=== PATIENT | female | born 1995 | race Caucasian/White ===

== ENCOUNTER 2023-12-27 21:32 | Outpatient (CLI) | payer BC, SELFPAY | END 2023-12-27 23:59 | LOC: LAB.DROPOF 21:32 | PROVIDERS: PCP Student in an Organized Health Care Education/Training Program; Visit Provider Student in an Organized Health Care Education/Training Program | DX: R05.9 Cough, unspecified (principal); R50.9 Fever, unspecified; J02.9 Acute pharyngitis, unspecified; R09.89 Other specified symptoms and signs involving the circulatory and respiratory systems; Z20.828 Contact with and (suspected) exposure to other viral communicable diseases | CPT/HCPCS: 87070 ==

== ENCOUNTER 2024-04-18 20:33 | Emergency (ER) | payer BC, SELFPAY ==
[2024-04-18 20:34] VITALS: BP 165/85; PULSE 90; RESP 20; TEMP 37.7; O2SAT 97; BMI 33.9
--- NOTE | 2024-04-18 20:41 | XR_ITS ---
PROCEDURE INFORMATION: Exam: XR Chest Exam date and time: 04/18/2024 8:52 PM Age: 28 years old Clinical indication: Shortness of breath; Additional info: SOA and productive cough, L posterior cp TECHNIQUE: Imaging protocol: Radiologic exam of the chest. Views: 2 views. COMPARISON: No relevant prior studies available. FINDINGS: Lungs: Patchy streaky airspace opacities in the left upper lobe compatible with developing pneumonia. Lungs otherwise clear. Pleural spaces: Unremarkable. No pleural effusion. No pneumothorax. Heart/Mediastinum: Unremarkable. No cardiomegaly. Bones/joints: Unremarkable. IMPRESSION: Left upper lobe pneumonia. Consider follow-up x-ray in 4-6 weeks to ensure resolution.
--- NOTE | 2024-04-18 20:49 | PC.NURSE ---
RT notified of VBG, states she will pick it up in the lab
--- NOTE | 2024-04-18 20:50 | ECG_ITS ---
APPROVED REPORT Exam: Resting ECG HR:79 bpm ECG Measurements Heart Rate 79 AXES SD 161 P 33 QRSd 85 QRS 13 QT 345 T 22 QTc 379 Conclusion SINUS RHYTHM Electronically signed by : AGNIESZKA SANDERS, 04/18/2024 22:00:49
[2024-04-18] MEDS: KETOROLAC 30MG/ML VIAL 15 MG IV (20:52)
[2024-04-18] MEDS: LACTATED RINGERS 1000ML 1,000 ML 999 ML IV (20:52)
[2024-04-18 21:00] VITALS: BP 136/73; PULSE 100; O2SAT 98
[2024-04-18 21:09] LABS: Lactate Venous 1.4 mmol/L (0.4-2.0); VBG Base Excess 0.6 mmol/L (-2.4-2.3); VBG HCO3 25.8 mmol/L (23-30); VBG PH 7.38 mmol/L (7.31-7.41); VBG PO2 37.8 mmol/L (28-40); VBG Total CO2 27.2 mmol/L (23-27)
[2024-04-18 21:10] LABS: Basophils # 0.1 K/mm3 (0-0.2); Basophils % 0.7 % (0.1-2.0); Eosinophils # 0.4 K/mm3 (0.0-0.4); Eosinophils % 3.7 % (0.1-12.0); Hematocrit 37.2 % (37.0-47.0); Hemoglobin 12.6 g/dL (12.2-16.2); Lymphocytes # 1.8 K/mm3 (0.7-4.5); Lymphocytes % 17.6 % (10-50); Mean Corpuscular HGB Conc 33.9 g/dL (31.8-35.4); Mean Corpuscular Hemoglobin 28.8 pg (27.0-31.2); Mean Corpuscular Volume 84.9 fl (81-99); Mean Platelet Volume 7.2 fl (7.4-10.4); Monocytes # 0.4 K/mm3 (0.1-1.0); Neutrophils # 7.4 K/mm3 (1.8-7.8); Platelet Count 364 K/mm3 (142-424); Red Blood Count 4.38 M/mm3 (4.20-5.40); Red Cell Distribution Width 13.6 % (11.5-17.5)
--- NOTE | 2024-04-18 21:24 | [facility].EDCP ---
Discharge Plan Disposition Patient Disposition: Home, Self-Care Prescriptions Prescriptions: New amoxicillin-pot clavulanate 875-125 mg tablet 1 tab PO BID 7 Days Qty: 14 0RF azithromycin 500 mg tablet 500 mg PO DAILY 2 Days Qty: 2 0RF Rx Instructions: start on day 2 of therapy No Action fluticasone propionate [Allergy Relief (fluticasone)] 50 mcg/actuation spray,suspension 1 spray intranasal DAILY Qty: 16 2RF Rx Instructions: administer into each nostril Referrals Follow up/Referrals: Arpita Bermudez PA [Primary Care Provider] - See instructions Activity Restrictions/Add. Instructions Additional Instructions/Restrictions: Azithromycin each day for the next 2 days. Augmentin twice daily for the full course. Call your family doctor to establish care for this visit to the emergency department and schedule follow-up within 48 hours to ensure improvement. If you have any worsening of your condition or any other concerning signs or symptoms, return to the emergency department or your primary care doctor for further evaluation. Clinical Impressions Clinical Impression: Left upper lobe pneumonia Discharge ED Provider: Mk Thomas [facility] General Chief Complaint: Shortness of Breath/Dyspnea Stated Complaint: diff breathing, cough Time Seen by Provider: 04/18/24 20:35 Mode of Arrival: Ambulatory Source of Information: Patient Limitations: No Limitations Description of Symptoms (Recalled from ER Triage Doc. by RN): Pt ambulatory to ED with c/o difficulty tsking a deep breath, and difficulty breathing while laying flat. pt reports she started having fevers 7/4 that lasted unitl yesterday. Pt also reports for the past 2 mornings she has had a productive cough with streaks of blood in mucous. History of Present Illness HPI narrative: Please note that above description of symptoms, in this electronic medical record under categorization of recalled from ER triage doctor by RN are reflective of an initial nursing assessment, however, is not reflective of my full history and physical exam that was personally taken and clarified. Consequentially, this preceding description of symptoms, which may include the patient's categorized chief complaint in the EMR, do not reflect my personal clinical impression, and the ultimate description of history of present illness and patient stated complaints should be deferred to this section of the note. Unless stated otherwise or congruent with this section of the note, additional signs, symptoms, or incongruence should be interpreted as inaccurate with my clinical impression. Related Data Previous Rx's Medication Instructions Recorded fluticasone propionate 50 1 spray intranasal DAILY #16 grams 12/27/23 mcg/actuation nasal spray,suspension (Allergy Relief (fluticasone)) amoxicillin 875 mg-potassium 1 tab PO BID 7 days #14 tabs 04/18/24 clavulanate 125 mg tablet azithromycin 500 mg tablet 500 mg PO DAILY 2 days #2 tabs 04/18/24 Allergies Allergy/AdvReac Type Severity Reaction Status Date / Time No Known Allergies Allergy Verified 12/27/23 14:10 [facility] Disclaimer: The information contained in this section may have been updated after the patient was seen, as this information can be updated by other users. Medical History (Updated 04/18/24 @ 22:25 by Mk Thomas MD) No significant past medical history Surgical History (Updated 12/27/23 @ 14:16 by Chantal Tipton) No significant past surgical history Family History (Updated 12/27/23 @ 14:16 by Chantal Tipton) Other No significant family history Social History (Updated 12/27/23 @ 14:16 by Chnatal Tipton) Smoking Status: Never smoker alcohol intake: never current occupational status: employed Travel in the last 8 weeks: None ROS Obtained: Yes All systems reviewed & no additional complaints except as documented Physical Exam General General appearance: alert Neck Neck exam: Present trachea midline Chest Chest inspection: Present normal inspection and symmetric chest wall rise Respiratory Respiratory exam: Present normal lung sounds bilaterally; Absent respiratory distress, wheezes, stridor, accessory muscle use or prolonged expiratory phase Cardiovascular Cardiovascular exam: Present normal rhythm and tachycardia Extremities Exam Extremities exam: Absent edema Neurological Exam Neurological exam: Present alert, oriented X3 and CN II-XII intact Skin Skin exam: Present warm and dry; Absent cyanosis, diaphoresis or pallor HEART Score HEART Score HEART Score assessment performed?: No Critical Care Critical Care Time Critical Care Time: No Medical Decision Making Medical Records Medical records reviewed: Yes I reviewed the patient's medical records. [place] Inquiry Pt receiving controlled substance: No [place] was queried for this patient: No Vital Signs Vital Signs: 04/18/24 20:34 04/18/24 21:00 Temperature 99.9 F H Temperature Source Oral Pulse Rate 100 H Pulse Rate [Left Radial] 90 Respiratory Rate 20 Blood Pressure 136/73 Blood Pressure [Right Arm] 165/85 H Blood Pressure Mean 94 Blood Pressure Mean [Right Arm] 111 Blood Pressure Source [Right Arm] Automatic Cuff Blood Pressure Position [Right Arm] Sitting 02 Sat by Pulse Oximetry 97 98 Oxygen Delivery Method Room Air Room Air Lab Data Labs: Lab Results 04/18/24 20:41: VBG pH 7.38, VBG pCO2 45.0, VBG pO2 37.8, VBG HCO3 25.8, VBG Total CO2 27.2 H, VBG O2 Saturation 70.0, VBG Base Excess 0.6, VBG Lactic Acid 1.4 04/18/24 20:55: WBC 10.0, RBC 4.38, Hgb 12.6, Hct 37.2, MCV 84.9, MCH 28.8, MCHC 33.9, RDW 13.6, Plt Count 364, MPV 7.2 L, Neut % (Auto) 74.0, Lymph % (Auto) 17.6, [place] % (Auto) 4.0, Eos % (Auto) 3.7, Baso % (Auto) 0.7, Neut # (Auto) 7.4, Lymph # (Auto) 1.8, [place] # (Auto) 0.4, Eos # (Auto) 0.4, Baso # (Auto) 0.1, D-Dimer 0.77 H, Sodium 140, Potassium 3.6, Chloride 104, Carbon Dioxide 30, BUN 13, Creatinine 0.70, Estimated Creat Clear 182, Estimated GFR 100, Est GFR ( Amer) 121, Glucose 95, Calcium 9.4, Total Bilirubin 0.2, AST 39 H, ALT 46, Alkaline Phosphatase 92, Total Protein 6.9, Albumin 3.9, Globulin 3.0, Albumin/Globulin Ratio 1.3 04/18/24 20:55 04/18/24 20:55 Response Orders (Tests/Meds): ED MEDICATIONS Discontinued Medications Generic Name Dose Route Start Last Admin Trade Name Freq PRN Reason Stop Dose Admin Lactated Ringer's 1,000 mls @ 999 mls/hr 04/18/24 20:41 04/18/24 20:52 Lactated Ringer's 1000 Ml Bag IV 04/18/24 21:41 999 mls/hr .Q1H1M ONE Administration Ketorolac Tromethamine 15 mg 04/18/24 20:41 04/18/24 20:52 Ketorolac 30mg/Ml Vial IV 04/18/24 20:42 15 mg ONCE ONE Administration ORDERS Category Date Time Status CXR 2 view (NOT portable) [XR chest 2V] Stat Exams 04/18/24 20:41 Completed CBC w/Auto Diff [Complete Blood Count Auto Diff] Stat Lab 04/18/24 20:55 Completed CMP [Comprehensive Metabolic Panel] Stat Lab 04/18/24 20:55 Results D-Dimer Stat Lab 04/18/24 20:55 Completed Procalcitonin Stat Lab 04/18/24 20:55 Results VBG [Venous Blood Gas] Stat RT 04/18/24 20:41 Completed MDM Narrative Medical Decision Narrative: 28-year-old female history of pneumonia presenting with chest pain difficulty breathing. She states that she has had a viral illness for the past few days, yesterday started feeling like it was difficult to breathe. When she takes deep breaths, she has pain in her posterior lateral chest wall inferiorly on the left. Does not radiate. Associated with sensation of respiration. Patient has had a cough productive of yellowish sputum and intermittently having blood. No nausea, vomiting, but she has had fevers as well. History was obtained via conversation with patient. On arrival, patient hemodynamically stable, alert, oriented x4, appropriate, GCS 15, moving all extremities spontaneously, pupils equal and reactive to light. Full physical exam performed and significant for uncomfortable appearing woman who is in no acute distress. She is mildly tachycardic 100 to 105 bpm. Saturating appropriately on room air. Afebrile. Cardiac exam normal otherwise. Lungs are clear to auscultation bilaterally anterior and posteriorly. Patient was given Toradol, fluids for symptomatic management and correction of underlying abnormalities. Independent interpretation of EKG shows sinus rhythm 79 beats a minute without ST or T wave changes concern for acute ischemia. SD 161, QRS 85, QTc 379. Workup independently interpreted and significant for no leukocytosis. Mildly elevated D-dimer 0.77, but I feel this is appropriately explained by left upper lobe pneumonia on chest x-ray. See radiology read for full review of final results. Patient placed on continuous cardiac monitoring and continuous pulse ox with initial blood pressure 165/85, heart rate 90, saturation 97 on room air. Because of this, I feel PE is less likely than pneumonia and the D-dimer is likely reactive. Patient given azithromycin and ceftriaxone, discharged home. Because patient at baseline without signs or symptoms of clinical decompensation, deemed appropriate for discharge. Results were relayed to patient who voiced understanding and were agreeable to outpatient management and follow up. I discussed my clinical impression with patient and answered all questions. At this time, the evidence for any other entities in the differential is insufficient to warrant any further testing or ED observation. This was explained as well. Advisory was given that persistent or worsening symptoms require further evaluation. I confirmed the understanding of this discussion. [employer]rain [employer]ader disclaimer Much of this encounter note is an electronic speech communication professor spoken language to printed text. Electronic speech communication professor of the spoken language may permit errors. Although I have reviewed the note, some errors may still exist.
[2024-04-18 21:25] LABS: Chloride 104 mmol/L (98-107); Sodium 140 mmol/L (136-145)
[2024-04-18 21:26] LABS: Potassium 3.6 mmoL/L (3.5-5.1)
[2024-04-18 21:28] LABS: Alanine Aminotransferase 46 U/L (12-78); Alkaline Phosphatase 92 U/L (38-126); Aspartate Amino Transferase 39 U/L (14-36); Bilirubin,Total 0.2 mg/dl (0.2-1.3); Blood Urea Nitrogen 13 mg/dl (7-17); Creatinine Clearance Estimated 182 mL/min (50-200); Estimated Glomerular Filt Rate 100 ml/min (>60); GFR (African American) 121 ML/MIN (>60)
[2024-04-18 21:29] LABS: Albumin Level 3.9 g/dl (3.5-5.0); Albumin/Globulin Ratio 1.3 (1.1-1.8); Calcium 9.4 mg/dl (8.4-10.2); Carbon Dioxide 30 mmol/L (22.0-30.0); Glucose 95 mg/dl (74-100); Total Protein,Serum 6.9 g/dl (6.3-8.2)
--- NOTE | 2024-04-18 21:34 | PC.NURSE ---
Rounded on pt at this time, pt voices no needs.
[2024-04-18 22:04] LABS: D-Dimer 0.77 ug/mL (0.0-0.5)
[2024-04-18 22:28] LABS: Anion Gap 9.6 mEq/L (5-15)
[2024-04-18] MEDS: CEFTRIAXONE SODIUM 2 GM in 0.9 % SODIUM CHLORIDE 100 ML IV (22:31)
[2024-04-18 22:32] LABS: Procalcitonin 0.035 ng/mL (0.0-2.0)
[2024-04-18 22:33] VITALS: BP 125/70; PULSE 87; RESP 18; TEMP 37; O2SAT 97
[2024-04-18] MEDS: AZITHROMYCIN 250MG TABLET 500 MG PO (22:33)
== END 2024-04-18 22:53 | disposition home or self-care (01) ==
PROVIDERS: Emergency Provider Emergency Medicine; PCP Student in an Organized Health Care Education/Training Program
DX: J18.9 Pneumonia, unspecified organism (principal); R06.02 Shortness of breath; R50.9 Fever, unspecified; R05.9 Cough, unspecified
CPT/HCPCS: 71046; 80053; 82803; 84145; 85025; 85378; 93005; 96361; 96365; 96375; 99284; J0696; J1885; J7120

== ENCOUNTER 2024-08-29 11:08 | Outpatient (CLI) | payer BC, SELFPAY | END 2024-08-29 23:59 | disposition home or self-care (01) | LOC: LAB.DROPOF 08-30 07:25 | PROVIDERS: PCP Nurse Practitioner Family; Visit Provider Nurse Practitioner Family | DX: R39.9 Unspecified symptoms and signs involving the genitourinary system (principal) | CPT/HCPCS: 87086; 87088; 87186 ==